=== PATIENT | male | born 2000 | race Caucasian/White ===

== ENCOUNTER 2021-03-11 18:19 | Emergency (ER) | payer SELFPAY ==
[2021-03-11 18:30] VITALS: BP 157/73; PULSE 112; RESP 16; TEMP 36.9; O2SAT 98
--- NOTE | 2021-03-11 18:33 | ED.GENADULT ---
HPI - General Adult General Chief complaint: Abdominal Pain Stated complaint: lt side pain Time Seen by Provider: 03/11/21 18:45 Source: patient and RN notes reviewed Mode of arrival: ambulatory Limitations: no limitations History of Present Illness HPI narrative: 20-year-old male accompanied by father presents to [facility] with complaints of left upper quadrant of abdomen discomfort for 2 week duration from below his breast down into abdomen laterally.He states that the pain went away twice now its back and constant.He states not really a pain but is 'discomfort . He reports that he took Tylenol twice but did not resolve his discomfort.Patient reports no changes in his bowel or bladder function, denies any episodes of nausea or vomiting, diet and fluids are taken well with no changes in appetite. Patient denies any know injury to area, father states that patient did lift some 40 packs of water bottles in the past few weeks.Patient states that he can't lay on his left side, can't sleep at night and even in shower its all he focuses on. Onset (ago): week(s) (2 weeks intermittently) Location: abdomen (left upper area) Radiation: non-radiation Quality: aching Relieving factors: none Related Data Allergies Allergy/AdvReac Type Severity Reaction Status Date / Time No Known Allergies Allergy Verified 03/11/21 18:38 Review of Systems Review of Systems: Narrative: CONSTITUTIONAL: Denies fever, chills, or sweats. EYES: Denies visual changes, redness, or discharge. ENT: Denies rhinorrhea, congestion, sore throat, or otalgia. CARDIOVASCULAR: Denies chest pain, palpitations, or edema. RESPIRATORY: Denies cough or dyspnea. GASTROINTESTINAL: Left upper lateral abdominal pain, no nausea, vomiting, or diarrhea. GENITOURINARY: Denies dysuria or hematuria. SKIN: Denies rash or itching. MUSCULOSKELETAL: Denies back pain, joint pain, or myalgia. NEUROLOGIC: Denies headache, numbness, or weakness. PSYCHIATRIC: Denies anxiety or depression, is anxious All systems reviewed & are unremarkable except as noted in HPI and below PMFSH Past Medical History Medical History (Updated 03/12/21 @ 00:01 by Fannie Caputo) Healthy adult male Surgical History Surgical History (Updated 03/11/21 @ 19:24 by Jolanta Stanley NP) No history of previous surgery Family History Family History (Updated 03/11/21 @ 19:28 by Jolanta Stanley NP) Grandparent Cerebrovascular accident Arthritis Cancer Father Hypertension Arthritis Social History Social History (Updated 03/11/21 @ 19:25 by Jolanta Stanley NP) Smoking status: Never smoker Alcohol intake: current Alcohol use details: very rare Substance use: current Substance use type: marijuana Last use: rare use Living arrangements: with family Gender identity (if verbalized by the patient): Male Comments At time of signature, agree with nursing past medical, surgical, social and family history. There is no relevant family history pertinent to the presenting complaint Exam Narrative: Exam Narrative: GENERAL: Well-appearing, well-nourished, and in no acute distress. HEAD: Normocephalic, atraumatic. EYES: PERRLA and EOMI. ENT: Nares clear, no rhinorrhea or epistaxis. Mucous membranes moist. NECK: Supple.no lymphadenopathy CHEST: Clear to auscultation. No respiratory distress.SAO2 98% on room air, no increase in pain with deep breathing HEART: Regular rate and rhythm. No murmur heard. Normal peripheral pulses. ABDOMEN: Soft, nontender to palpation, no organomegaly noted or areas of firmness, nondistended, normal active bowel sounds. does state some increase discomfort with some movements. EXTREMITIES: Normal range of motion. No edema. SKIN: Warm, dry, no rash. NEURO: No focal deficits. Alert and oriented x3. Course Vital Signs Vital signs: Vital Signs Temperature 36.9 C 03/11/21 18:30 Pulse Rate 112 H 03/11/21 18:30 Respiratory Rate 16 03/11/21 18:30 Bloo
== END 2021-03-11 19:12 | disposition home or self-care (01) ==
PROVIDERS: Emergency Provider Registered Nurse
DX: R10.12 Left upper quadrant pain (principal)
CPT/HCPCS: 99213; G0463